=== PATIENT | female | born 1945 | race Hispanic/Latino ===

== ENCOUNTER 2017-11-20 12:44 | Inpatient (IN) | payer MEDICARE, OTHER ==
--- NOTE | 2017-11-20 13:13 | ED PDOC ---
Arrival/HPI - General Time Seen by Provider: 11/20/17 12:51 Historian: Patient - History of Present Illness Narrative History of Present Illness (Text): 11/20/17 12:55 Pat Mc is a 72 year old female who presents to the emergency department complaining of generalized weakness, fatigue, inability to walk, and increased confusion for a few days. Patient history obtained from and Dr. Correa. Patient was sent in to be admitted for custodial placement. No other complaints offered at this time. Patient has never smoked and is not a drinker. Time/Duration: < week Symptom Onset: Gradual Symptom Course: Unchanged Context: Home Past Medical History - Provider Review Nursing Documentation Reviewed: Yes - Infectious Disease Hx of Infectious Diseases: None - Tetanus Immunization Tetanus Immunization: Up to Date - Past Medical History Past Medical History: No Previous - Cardiac Hx Cardiac Arrhythmia: Yes - Musculoskeletal/Rheumatological Hx Falls: Yes Other/Comment: right knee miniscus surgery - Psychiatric Hx Psychophysiologic Disorder: No Hx Anxiety: No Hx Bipolar Disorder: No Hx Depression: No Hx Emotional Abuse: No Hx Hallucinations: No Hx Panic Disorder: No Hx Post Traumatic Stress Disorder: No Hx Psychosis: No Hx Physical Abuse: No Hx Schizophrenia: No Hx Sexual Abuse: No Hx Substance Use: No - Surgical History Hx Orthopedic Surgery: Yes (right knee miniscus) - Anesthesia Hx Anesthesia: Yes Hx Anesthesia Reactions: No Hx Malignant Hyperthermia: No - Suicidal Assessment Feels Threatened In Home Enviroment: No Family/Social History - Physician Review Nursing Documentation Reviewed: Yes Family/Social History: No Known Family HX Smoking Status: Never Smoked Hx Alcohol Use: No Hx Substance Use: No Hx Substance Use Treatment: No Allergies/Home Meds Allergies/Adverse Reactions: Allergies No Known Allergies Allergy (Verified 02/26/15 19:54) Home Medications: Home Meds Medication Instructions Recorded Confirmed Aspirin [Aspirin EC] 81 mg PO DAILY 02/28/15 06/01/15 Metoprolol Tartrate [Lopressor] 50 mg PO Q12 02/28/15 06/02/15 Review of Systems - Physician Review All systems were reviewed & negative as marked: Yes - Review of Systems Constitutional: Fatigue, Other (generalized weakness; inability to walk) Eyes: absent: Vision Changes ENT: absent: Hearing Changes Respiratory: absent: SOB, Cough Cardiovascular: absent: Chest Pain Gastrointestinal: absent: Abdominal Pain Genitourinary Female: absent: Dysuria, Frequency Musculoskeletal: absent: Arthralgias Skin: absent: Rash Neurological: absent: Headache Endocrine: absent: Diaphoresis Hemo/Lymphatic: absent: Adenopathy Psychiatric: Other (increased confusion) Physical Exam Vital Signs Reviewed: Yes Vital Signs Temp Pulse Resp BP Pulse Ox 11/20/17 14:44 79 18 133/74 98 11/20/17 13:10 98.4 F 92 H 18 129/64 100 Mental Status: Positive for: other (oriented to person only) - Systems Exam Head: Present: Atraumatic, Normocephalic Pupils: Present: PERRL Extroacular Muscles: Present: EOMI Conjunctiva: Present: Normal Mouth: Present: Moist Mucous Membranes Neck: Present: Normal Range of Motion Respiratory/Chest: Present: Clear to Auscultation, Good Air Exchange. No: Respiratory Distress, Accessory Muscle Use Cardiovascular: Present: Regular Rate and Rhythm, Normal S1, S2. No: Murmurs Abdomen: Present: Normal Bowel Sounds. No: Tenderness, Distention, Peritoneal Signs Back: Present: Normal Inspection Upper Extremity: Present: Normal Inspection. No: Cyanosis, Edema Lower Extremity: Present: Normal Inspection. No: Edema Skin: Present: Warm, Dry, Normal Color. No: Rashes Psychiatric: No: Oriented x 3 (oriented to person only) Medical Decision Making ED Course and Treatment: 11/20/17 13:16 Impression: 72 year old female complaining of generalized weakness, fatigue, inability to walk, and increased confusion for a few days. Plan: -- EKG -- Chest X-ray -- Urinalysis -- Labs -- Reassess and disposition Progress Notes: 11/20/17 14:29 Chest X-ray: Creator : Chapito Anton MD FINDINGS: LUNGS:No active pulmonary disease. PLEURA:No significant pleural effusion identified, no pneumothorax apparent. CARDIOVASCULAR:Normal. OSSEOUS STRUCTURES:No significant abnormalities. VISUALIZED UPPER ABDOMEN:Normal. OTHER FINDINGS:None. IMPRESSION: No active disease. 11/20/17 14:55 Waiting for urine sample. Patient does have a leukocytosis. Straight catheterization has been ordered on arrival, but has not yet been done. 11/20/17 15:58 EKG shows sinus arrhythmia rate approximately 90 with poor R waves and no acute ST or T-wave changes 11/20/17 16:[address]E Correa who will admit. No antibiotics at this point. Blood and urine cultures have been obtained. - Lab Interpretations Lab Results: 11/20/17 13:15 11/20/17 13:15 Lab Results 11/20/17 15:00: Urine Color Yellow, Urine Appearance Clear, Urine pH 7.5, Ur Specific Alexander 1.015, Urine Protein 30 H, Urine Glucose (UA) Negative, Urine Ketones Negative, Urine Blood Negative, Urine Nitrate Negative, Urine Bilirubin Negative, Urine Urobilinogen 0.2, Ur Leukocyte Esterase Negative, Urine RBC 0 - 2, Urine WBC 1 - 3, Ur Epithelial Cells 0 - 2, Urine Bacteria Few 11/20/17 13:15: Sodium 131 L, Potassium 4.0, Chloride 94 L, Carbon Dioxide 27, Anion Gap 14, BUN 15, Creatinine 0.8, Est GFR ( Amer) > 60, Est GFR (Non- Af Amer) > 60, Random Glucose 127 H, Calcium 9.0, Total Bilirubin 0.5, AST 64 H , ALT 41, Alkaline Phosphatase 171 H, Lactate Dehydrogenase 1040 H, Total Creatine Kinase < 20 L, Troponin I < 0.01, Total Protein 6.9, Albumin 3.1, Globulin 3.7, Albumin/Globulin Ratio 0.8 L 11/20/17 13:15: WBC 19.4 H D, RBC 3.68, Hgb 11.1 L, Hct 34.2 L, MCV 92.9, MCH 30.2, MCHC 32.5, RDW 13.3, Plt Count 412, MPV 9.1, Gran % 92.3 H, Lymph % (Auto ) 4.4 L, [place] % (Auto) 3.2, Eos % (Auto) 0.1 L, Baso % (Auto) 0.0, Gran # 17.87 H, Lymph # (Auto) 0.9 L, [place] # (Auto) 0.6, Eos # (Auto) 0.0, Baso # (Auto) 0.00 , Neutrophils % (Manual) 94 H, Band Neutrophils % 1, Lymphocytes % (Manual) 3 L , Monocytes % (Manual) 2, Platelet Evaluation Normal I have reviewed the lab results: Yes - RAD Interpretation Radiology Orders: 11/20/17 13:16 CHEST PORTABLE [RAD] Stat - Scribe Statement The provider has reviewed the documentation as recorded by the Giseleibe Mariela Thakur Provider Scribe Attestation: All medical record entries made by the Scribe were at my direction and personally dictated by me. I have reviewed the chart and agree that the record accurately reflects my personal performance of the history, physical exam, medical decision making, and the department course for this patient. I have also personally directed, reviewed, and agree with the discharge instructions and disposition. Disposition/Present on Arrival - Present on Arrival Any Indicators Present on Arrival: No History of DVT/PE: No History of Uncontrolled Diabetes: No Urinary Catheter: No History of Decub. Ulcer: No History Surgical Site Infection Following: None - Disposition Have Diagnosis and Disposition been Completed?: Yes Diagnosis: Leukocytosis, Dementia, Weakness Disposition: HOSPITALIZED Disposition Time: 16:02 Patient Plan: Admission Condition: FAIR Discharge Instructions (ExitCare): Weakness (ED) Referrals: Bairon Correa MD [Primary Care Provider] - Follow up with primary
[2017-11-20 13:25] LABS: EOS % 0.1 % (1.5-5.0); GRAN # 17.87 (1.4-6.5); GRAN % 92.3 % (50.0-68.0); HEMOGLOBIN 11.1 g/dL (12.0-16.0); LYMPH # 0.9 (1.2-3.4); LYMPH % 4.4 % (22.0-35.0); MEAN CELL VOLUME 92.9 fl (80.0-105.0); MEAN CORPUSCULAR HEMOGLOBIN 30.2 pg (25.0-35.0); MEAN CORPUSCULAR HGB CONC 32.5 g/dl (31.0-37.0); MEAN PLATELET VOLUME 9.1 fl (7.0-11.0); MONO # 0.6 (0.1-0.6); MONO % 3.2 % (1.0-6.0); PLATELET COUNT 412 10^3/uL (120.0-450.0); RBC 3.68 10^6/uL (3.5-6.1); RED CELL DISTRIBUTION WIDTH 13.3 % (11.5-14.5); WHITE BLOOD COUNT 19.4 10^3/ul (4.5-11.0)
[2017-11-20 13:46] LABS: ALB/GLOB RATIO 0.8 (1.1-1.8); ALBUMIN 3.1 g/dL (3.0-4.8); ALT/SGPT 41 U/L (7-56); AST/SGOT 64 U/L (14-36); BLOOD UREA NITROGEN 15 mg/dL (7-21); GFR AFRICAN-AMERICAN > 60; GFR NON-AFRICAN AMERICAN > 60
--- NOTE | 2017-11-20 13:55 | RAD ---
HISTORY: ams COMPARISON: 06/01/2015 FINDINGS: LUNGS: No active pulmonary disease. PLEURA: No significant pleural effusion identified, no pneumothorax apparent. CARDIOVASCULAR: Normal. OSSEOUS STRUCTURES: No significant abnormalities. VISUALIZED UPPER ABDOMEN: Normal. OTHER FINDINGS: None. IMPRESSION: No active disease.
[2017-11-20 13:56] LABS: TROPONIN I < 0.01 ng/mL
[2017-11-20 13:57] LABS: BAND 1 % (0-2); LYMPHOCYTE 3 % (22.0-35.0); MONOCYTE 2 % (1.0-6.0); NEUTROPHIL 94 % (50.0-70.0); PLATELET ESTIMATE NORMAL (NORMAL)
[2017-11-20 15:26] LABS: PH,URINE 7.5 (4.7-8.0); URINE BILIRUBIN NEGATIVE (NEGATIVE); URINE BLOOD NEGATIVE (NEGATIVE); URINE GLUCOSE (UA) NEGATIVE (NEGATIVE); URINE LEUKOCYTE ESTERASE NEGATIVE Leu/uL (NEGATIVE); URINE NITRATE NEGATIVE (NEGATIVE); URINE PROTEIN 30 mg/dL (<30 mg/dL); URINE UROBILINOGEN 0.2 E.U./dL (<1 E.U./dL)
[2017-11-20 15:29] LABS: URINE APPEARANCE CLEAR (CLEAR); URINE COLOR YELLOW (YELLOW)
[2017-11-20 15:39] LABS: URINE BACTERIA FEW (NEG); URINE EPITHELIAL CELLS 0 - 2 /hpf (0-5); URINE RBC 0 - 2 /hpf (0-2)
--- NOTE | 2017-11-20 17:52 | CARD ---
APPROVED REPORT EKG Measurement Heart [id number] <Conclusion> Sinus rhythm with short UT with premature atrial complexes with aberrant conduction Otherwise normal ECG
[2017-11-21 00:21] VITALS: BMI 18.4
[2017-11-21 06:28] LABS: HEMOGLOBIN 11.9 g/dL (12.0-16.0); MEAN CELL VOLUME 91.4 fl (80.0-105.0); MEAN CORPUSCULAR HEMOGLOBIN 30.1 pg (25.0-35.0); MEAN CORPUSCULAR HGB CONC 32.9 g/dl (31.0-37.0); MEAN PLATELET VOLUME 9.4 fl (7.0-11.0); RBC 3.96 10^6/uL (3.5-6.1); RED CELL DISTRIBUTION WIDTH 13.7 % (11.5-14.5); WHITE BLOOD COUNT 24.4 10^3/ul (4.5-11.0)
[2017-11-21 06:50] LABS: ALB/GLOB RATIO 0.8 (1.1-1.8); ALT/SGPT 42 U/L (7-56); AST/SGOT 73 U/L (14-36); BLOOD UREA NITROGEN 12 mg/dL (7-21); CALCIUM 9.2 mg/dL (8.4-10.5); GFR AFRICAN-AMERICAN > 60; GFR NON-AFRICAN AMERICAN > 60
--- NOTE | 2017-11-21 11:55 | CP.PCM.CON ---
History of Present Illness - History of Present Illness History of Present Illness: 72 year old female with PMH of right meniscus surgery, frequent falls came in to [facility] because the patient has been having increasing weakness, fatigue and difficulty ambulating for the past week. It had been going on longer than this, probably for at least several months now, but is getting worse. The patient has also been having worsening forgetfulness for over a year now and is currently being treated for dementia with medications. She denies headache, no jaw pain when eating, no blurring of vision, no sore throat, no rhinorrhea, no cough or colds, no chest pain, no SOB at rest, no abdominal pain, no diarrhea, no dysuria , no muscle aches. The patient is oriented to person but not to time and place. In the ED, WBC count is noted to be elevated and Infectious Diseases consult is requested to further evaluate and manage. Review of Systems - Review of Systems All systems: reviewed and no additional remarkable complaints except (as per HPI ) Past Patient History - Infectious Disease Hx of Infectious Diseases: None - Tetanus Immunizations Tetanus Immunization: Up to Date - Past Social History Smoking Status: Never Smoked - CARDIAC Hx Cardiac Disorders: Yes Hx Hypertension: Yes Other/Comment: HISTORY OBTAINED FROM SPOUSE AND SON - PULMONARY Hx Respiratory Disorders: No - NEUROLOGICAL Hx Neurological Disorder: Yes Hx Dementia: Yes - HEENT Hx HEENT Problems: No - RENAL Hx Chronic Kidney Disease: No - ENDOCRINE/METABOLIC Hx Endocrine Disorders: No - HEMATOLOGICAL/ONCOLOGICAL Hx Blood Disorders: No - INTEGUMENTARY Hx Dermatological Problems: No - MUSCULOSKELETAL/RHEUMATOLOGICAL Hx Falls: Yes - GASTROINTESTINAL Hx Gastrointestinal Disorders: No - PSYCHIATRIC Hx Psychophysiologic Disorder: No - SURGICAL HISTORY Hx Surgeries: Yes Hx Orthopedic Surgery: Yes (right knee miniscus) - ANESTHESIA Hx Anesthesia: Yes Hx Anesthesia Reactions: No Hx Malignant Hyperthermia: No Meds Allergies/Adverse Reactions: Allergies Allergy/AdvReac Type Severity Reaction Status Date / Time No Known Allergies Allergy Verified 11/20/17 19:00 - Medications Medications: Current Medications Aspirin (Aspirin Chewable) 81 mg PO DAILY [facility] Donepezil HCl (Aricept) 10 mg PO DAILY [facility] Memantine (Namenda) 10 mg PO BID [facility] Metoprolol Tartrate (Lopressor) 50 mg PO Q12 [facility] Last Admin: 11/20/17 23:17 Dose: 50 mg Physical Exam - Constitutional Appears: Non-toxic, Chronically Ill - Head Exam Head Exam: NORMAL INSPECTION Additional comments: no temporal tenderness - ENT Exam ENT Exam: Mucous Membranes Moist - Neck Exam Neck exam: Negative for: Lymphadenopathy, Meningismus - Respiratory Exam Respiratory Exam: Decreased Breath Sounds - Cardiovascular Exam Cardiovascular Exam: +S1, +S2 - GI/Abdominal Exam GI & Abdominal Exam: Soft. absent: Tenderness Results - Vital Signs Recent Vital Signs: Last Vital Signs Temp 97.7 F 11/21/17 08:04 Pulse 89 11/21/17 08:04 Resp 23 11/21/17 08:04 BP 140/70 11/21/17 08:04 Pulse Ox 96 11/21/17 08:04 - Labs Result Diagrams: 11/21/17 05:30 11/21/17 05:30 Labs: Laboratory Results - last 24 hr 11/21/17 11/21/17 05:30 05:30 WBC 24.4 H D RBC 3.96 Hgb 11.9 L Hct 36.2 MCV 91.4 MCH 30.1 MCHC 32.9 RDW 13.7 Plt Count 459 H MPV 9.4 Sodium 132 Potassium 4.0 Chloride 95 L Carbon Dioxide 29 Anion Gap 12 BUN 12 Creatinine 0.6 L Est GFR ( Amer) > 60 Est GFR (Non-Af Amer) > 60 Random Glucose 72 Calcium 9.2 Total Bilirubin 0.5 AST 73 H ALT 42 Alkaline Phosphatase 168 H Total Protein 6.7 Albumin 3.0 Globulin 3.7 Albumin/Globulin Ratio 0.8 L Assessment & Plan - Assessment and Plan (Free Text) Plan: Assessment Leukocytosis, etiology to be determined, R/O infection S/P right meniscus surgery frequent falls Plan Will check blood cx, urine cx, PCT; CXR does not show pneumonia will get ANIBAL, RF, RPR will monitor off antibiotics
--- NOTE | 2017-11-21 13:49 | CP.PCM.CON ---
<PhucGiselle - Last Filed: 11/21/17 17:06> History of Present Illness - History of Present Illness History of Present Illness: PGY-[address] Acuña Consult: Dementia, leukocytosis with elevated ESR Ms Pat Rob, 72 F, with PMHx of dementia (Dx 2 years ago), c/o increasing generalized weakness, fatique, and difficulty ambulation for the past week. Pt' s states that since they moved to the new place at [place] around jun 2017, these symptoms slowly and progressively get worse. Per , pt has fecal incontinent accidents 1 week ago, occasional forget how to use a walker requiring frequent instructions, and becomes more confused. 2 nights ago, per , pt is not able to ambulate despite repeat instructions. The feel that he cannot safely take care of the pt at home with these new worsening of symptoms, which prompted pt to come to the hospital. At baseline, Patient is oriented to person but not to time and place. Dependent in ADLs except self feed. 1 assist with walker. incontinence of B&B. ROS - Denies personality changes or hallucination. Denies sudden changes. Denies recent change in meds. No neurology f/u x 2 years. Denies CATALAN, jaw pain when eating, blurry vision, CP, SOB, nausea, abdominal pain , dysuria. Upon ED arrival, BP 176/84. HR 90s. Leukocytosis at 19.4 with granulocytosis, ESR 89. Na 131, Cl 94, AST 64, Alk phos 171, LDH 1040 U/A negative for infection CXR: No active disease EKG: sinus arrthythia @ 90 with poor R waves. PMD: Dr Correa PMH Sinus arrythmia with aberrant conduction Hx of chronic leukocytosis with positive ANIBAL Hx psoriasis Dementia (Dx 2 years ago) Hx frequent falls, Osteoarthritis in both knees PSH Thyroidectomy 1960 R meniscus Arthroscopic surgery 2007 FH Father, age 70, brain aneurysm Mother, age 60, multiple sclerosis SH Former smoker 1pack a day x 40 days, Quit smokeing 1994 Denies alcohol, drug All Penicillin - rash, severe Med ASA 81, metoprolol 50 BID Aricept 10 Daily and Namenda 10 BID Oxybutinin 5 BID Review of Systems - Review of Systems All systems: reviewed and no additional remarkable complaints except Review of Systems: as of HPI Past Patient History - Infectious Disease Hx of Infectious Diseases: None - Tetanus Immunizations Tetanus Immunization: Up to Date - Past Social History Smoking Status: Never Smoked - CARDIAC Hx Cardiac Disorders: Yes Hx Hypertension: Yes Other/Comment: HISTORY OBTAINED FROM SPOUSE AND SON - PULMONARY Hx Respiratory Disorders: No - NEUROLOGICAL Hx Neurological Disorder: Yes Hx Dementia: Yes - HEENT Hx HEENT Problems: No - RENAL Hx Chronic Kidney Disease: No - ENDOCRINE/METABOLIC Hx Endocrine Disorders: No - HEMATOLOGICAL/ONCOLOGICAL Hx Blood Disorders: No - INTEGUMENTARY Hx Dermatological Problems: No - MUSCULOSKELETAL/RHEUMATOLOGICAL Hx Falls: Yes - GASTROINTESTINAL Hx Gastrointestinal Disorders: No - PSYCHIATRIC Hx Psychophysiologic Disorder: No - SURGICAL HISTORY Hx Surgeries: Yes Hx Orthopedic Surgery: Yes (right knee miniscus) - ANESTHESIA Hx Anesthesia: Yes Hx Anesthesia Reactions: No Hx Malignant Hyperthermia: No Meds Allergies/Adverse Reactions: Allergies Allergy/AdvReac Type Severity Reaction Status Date / Time No Known Allergies Allergy Verified 11/20/17 19:00 - Medications Medications: Current Medications Acetaminophen (Tylenol 325mg Tab) 650 mg PO Q6H PRN PRN Reason: Fever >100.4 F Aspirin (Ecotrin) 81 mg PO DAILY [facility] Donepezil HCl (Aricept) 10 mg PO DAILY [facility] Last Admin: 11/21/17 11:18 Dose: 10 mg Memantine (Namenda) 10 mg PO BID [facility] Last Admin: 11/21/17 11:18 Dose: 10 mg Metoprolol Tartrate (Lopressor) 50 mg PO BRKDIN [facility] Physical Exam - Head Exam Head Exam: ATRAUMATIC, NORMAL INSPECTION, NORMOCEPHALIC - Eye Exam Eye Exam: EOMI, Normal appearance, PERRL. absent: Scleral icterus Pupil Exam: NORMAL ACCOMODATION - ENT Exam ENT Exam: Mucous Membranes Moist - Neck Exam Additional comments: supple - Respiratory Exam Respiratory Exam: Clear to Auscultation Bilateral, NORMAL BREATHING PATTERN. absent: Rales, Rhonchi, Wheezes - Cardiovascular Exam Cardiovascular Exam: REGULAR RHYTHM, +S1, +S2 - GI/Abdominal Exam GI & Abdominal Exam: Normal Bowel Sounds, Soft. absent: Tenderness - Extremities Exam Extremities exam: Negative for: calf tenderness Additional comments: No saddle anesthesia - Neurological Exam Neurological exam: Alert, CN II-XII Intact Additional comments: AAO x 1 to person Speech: no aphasia recall: 0/3 motor: move all extremities 4+/5 sensory: intact though: follow one-step instructions only. Left handed. - Psychiatric Exam Psychiatric exam: Normal Affect, Normal Mood - Skin Skin Exam: Dry, Warm Results - Vital Signs Recent Vital Signs: Last Vital Signs Temp 97.7 F 11/21/17 08:04 Pulse 90 11/21/17 11:18 Resp 23 11/21/17 08:04 BP 140/82 11/21/17 11:18 Pulse Ox 96 11/21/17 08:04 - Labs Result Diagrams: 11/21/17 05:30 11/21/17 05:30 Labs: Laboratory Results - last 24 hr 11/21/17 11/21/17 11/21/17 05:30 05:30 06:30 WBC 24.4 H D RBC 3.96 Hgb 11.9 L Hct 36.2 MCV 91.4 MCH 30.1 MCHC 32.9 RDW 13.7 Plt Count 459 H MPV 9.4 ESR 89 H Sodium 132 Potassium 4.0 Chloride 95 L Carbon Dioxide 29 Anion Gap 12 BUN 12 Creatinine 0.6 L Est GFR ( Amer) > 60 Est GFR (Non-Af Amer) > 60 Random Glucose 72 Calcium 9.2 Total Bilirubin 0.5 AST 73 H ALT 42 Alkaline Phosphatase 168 H Total Protein 6.7 Albumin 3.0 Globulin 3.7 Albumin/Globulin Ratio 0.8 L Assessment & Plan - Assessment and Plan (Free Text) Plan: Ms Pat Rob, 72 F, with PMHx of dementia (Dx 2 years ago), Hx (+) ANIBAL, c/ o increasing generalized weakness, fatique, and difficulty ambulation. Denies personality changes or hallucination. Her leukocytosis is at 19.4 with granulocytosis, ESR 89. Alzheimer Dementia r/o secondary cause - __Pening_ B12, TSH, RPR - __Pening_ MRI brain - Currently observe off antibiotics. Pending culture result - repeat ANIBAL, immunofixation, RF, Lupus panel - continue donepezil 10 daily and Namenda 10 BID - Physical therapy, occupational therapy - Recommended subacute rehab and long-term placement - Pt's prefer [place] s/r/d/w Dr. Acuña <Pepe Acuña - Last Filed: 11/22/17 09:22> Meds - Medications Medications: Current Medications Acetaminophen (Tylenol 325mg Tab) 650 mg PO Q6H PRN PRN Reason: Fever >100.4 F Aspirin (Ecotrin) 81 mg PO DAILY [facility] Last Admin: 11/21/17 17:43 Dose: 81 mg Donepezil HCl (Aricept) 10 mg PO DAILY [facility] Last Admin: 11/21/17 11:18 Dose: 10 mg Memantine (Namenda) 10 mg PO BID [facility] Last Admin: 11/21/17 17:43 Dose: 10 mg Metoprolol Tartrate (Lopressor) 50 mg PO BRKDIN [facility] Last Admin: 11/22/17 08:14 Dose: 50 mg Results - Vital Signs Recent Vital Signs: Last Vital Signs Temp 97.9 F 11/22/17 08:34 Pulse 97 H 11/22/17 08:34 Resp 20 11/22/17 08:34 BP 150/80 11/22/17 08:34 Pulse Ox 98 11/22/17 08:34 - Labs Result Diagrams: 11/22/17 06:10 11/22/17 06:10 Labs: Laboratory Results - last 24 hr 11/21/17 11/21/17 11/21/17 06:30 09:25 11:30 WBC RBC Hgb Hct MCV MCH MCHC RDW Plt Count MPV Gran % Lymph % (Auto) [place] % (Auto) Eos % (Auto) Baso % (Auto) Gran # Lymph # (Auto) [place] # (Auto) Eos # (Auto) Baso # (Auto) ESR 89 H Retic Count Sodium Potassium Chloride Carbon Dioxide Anion Gap BUN Creatinine Est GFR ( Amer) Est GFR (Non-Af Amer) Random Glucose Calcium Iron TIBC % Saturation C-React Prot High Sens > 15.00 H Procalcitonin Free T4 TSH 3rd Generation Rheumatoid Factor RPR Nonreactive WB Flow Cytometry 11/21/17 11/21/17 11/22/17 11:50 11:50 06:10 WBC 23.2 H RBC 3.88 Hgb 11.7 L Hct 35.4 L MCV 91.2 MCH 30.2 MCHC 33.1 RDW 13.5 Plt Count 418 MPV 9.4 Gran % 82.8 H Lymph % (Auto) 8.5 L [place] % (Auto) 7.7 H Eos % (Auto) 1.0 L Baso % (Auto) 0.0 Gran # 19.16 H Lymph # (Auto) 2.0 [place] # (Auto) 1.8 H Eos # (Auto) 0.2 Baso # (Auto) 0.01 ESR 88 H Retic Count 1.79 H Sodium Potassium Chloride Carbon Dioxide Anion Gap BUN Creatinine Est GFR ( Amer) Est GFR (Non-Af Amer) Random Glucose Calcium Iron TIBC % Saturation C-React Prot High Sens Procalcitonin 0.74 H Free T4 TSH 3rd Generation Rheumatoid Factor <14 RPR WB Flow Cytometry 11/22/17 11/22/17 11/22/17 06:10 06:10 06:10 WBC RBC Hgb Hct MCV MCH MCHC RDW Plt Count MPV Gran % Lymph % (Auto) [place] % (Auto) Eos % (Auto) Baso % (Auto) Gran # Lymph # (Auto) [place] # (Auto) Eos # (Auto) Baso # (Auto) ESR Retic Count Sodium 129 L Potassium 3.7 Chloride 93 L Carbon Dioxide 28 Anion Gap 12 BUN 9 Creatinine 0.5 L Est GFR ( Amer) > 60 Est GFR (Non-Af Amer) > 60 Random Glucose 79 Calcium 8.8 Iron 33 L TIBC 209 L % Saturation 16 L C-React Prot High Sens Procalcitonin Free T4 1.30 TSH 3rd Generation 0.97 Rheumatoid Factor RPR WB Flow Cytometry 11/22/17 08:00 WBC RBC Hgb Hct MCV MCH MCHC RDW Plt Count MPV Gran % Lymph % (Auto) [place] % (Auto) Eos % (Auto) Baso % (Auto) Gran # Lymph # (Auto) [place] # (Auto) Eos # (Auto) Baso # (Auto) ESR Retic Count Sodium Potassium Chloride Carbon Dioxide Anion Gap BUN Creatinine Est GFR ( Amer) Est GFR (Non-Af Amer) Random Glucose Calcium Iron TIBC % Saturation C-React Prot High Sens Procalcitonin Free T4 TSH 3rd Generation Rheumatoid Factor RPR WB Flow Cytometry Reference test Attending/Attestation - Attestation I have personally seen and examined this patient.: Yes I have fully participated in the care of the patient.: Yes I have reviewed all pertinent clinical information: Yes
[2017-11-22 06:35] LABS: BASO # 0.01 K/mm3 (0.0-2.0); EOS # 0.2 (0.0-0.7); GRAN # 19.16 (1.4-6.5); GRAN % 82.8 % (50.0-68.0); HEMOGLOBIN 11.7 g/dL (12.0-16.0); LYMPH % 8.5 % (22.0-35.0); MEAN CELL VOLUME 91.2 fl (80.0-105.0); MEAN CORPUSCULAR HEMOGLOBIN 30.2 pg (25.0-35.0); MEAN CORPUSCULAR HGB CONC 33.1 g/dl (31.0-37.0); MEAN PLATELET VOLUME 9.4 fl (7.0-11.0); MONO # 1.8 (0.1-0.6); MONO % 7.7 % (1.0-6.0); RBC 3.88 10^6/uL (3.5-6.1); RED CELL DISTRIBUTION WIDTH 13.5 % (11.5-14.5); WHITE BLOOD COUNT 23.2 10^3/ul (4.5-11.0)
[2017-11-22 06:51] LABS: IRON 33 ug/dL (45-180)
[2017-11-22 07:03] LABS: FREE T4 1.3 ng/dL (0.78-2.19)
[2017-11-22 07:04] LABS: % IRON SATURATION 16 % (20-55); TOTAL IRON BINDING CAPACITY 209 ug/dL (265-497)
[2017-11-22 07:49] LABS: BLOOD UREA NITROGEN 9 mg/dL (7-21); CALCIUM 8.8 mg/dL (8.4-10.5); GFR AFRICAN-AMERICAN > 60; GFR NON-AFRICAN AMERICAN > 60
--- NOTE | 2017-11-22 09:22 | PN ---
HEMATOLOGY EVALUATION The patient has multiple medical problems, but she has elevated white count of 23,000. Peripheral smear shows mostly polys. No increased lymphs. This is most likely reactive leukocytosis, but as we wait for her treatment of antibiotics, I sent her for flow cytometry and a BCR mutation to rule out chronic myelogenous leukemia that might be underlying this. Further evaluation after I review some of the labs. Guille Ronquillo MD
--- NOTE | 2017-11-22 11:18 | CP.PCM.PN ---
<Giselle Friend - Last Filed: 11/22/17 12:43> Subjective - Date & Time of Evaluation Date of Evaluation: 11/22/17 Time of Evaluation: 09:00 - Subjective Subjective: Neurology PGY-[address] Acuña Pt states that she is at home, denies any acute distress Objective - Vital Signs/Intake and Output Vital Signs (last 24 hours): Temp Pulse Resp BP Pulse Ox 97.9 F 97 H 20 150/80 98 11/22/17 08:34 11/22/17 08:34 11/22/17 08:34 11/22/17 08:34 11/22/17 08:34 Intake and Output: 11/22/17 11/22/17 06:59 18:59 Intake Total 480 Balance 480 - Medications Medications: Current Medications Acetaminophen (Tylenol 325mg Tab) 650 mg PO Q6H PRN PRN Reason: Fever >100.4 F Aspirin (Ecotrin) 81 mg PO DAILY [facility] Last Admin: 11/22/17 10:08 Dose: 81 mg Donepezil HCl (Aricept) 10 mg PO DAILY [facility] Last Admin: 11/22/17 10:08 Dose: 10 mg Memantine (Namenda) 10 mg PO BID [facility] Last Admin: 11/22/17 10:08 Dose: 10 mg Metoprolol Tartrate (Lopressor) 50 mg PO BRKDIN [facility] Last Admin: 11/22/17 08:14 Dose: 50 mg - Labs Labs: 11/22/17 06:10 11/22/17 06:10 - Constitutional Appears: No Acute Distress - Head Exam Head Exam: ATRAUMATIC, NORMAL INSPECTION, NORMOCEPHALIC - Eye Exam Eye Exam: EOMI, Normal appearance, PERRL. absent: Scleral icterus Pupil Exam: NORMAL ACCOMODATION - ENT Exam ENT Exam: Mucous Membranes Moist - Neck Exam Additional comments: supple - Respiratory Exam Respiratory Exam: Clear to Ausculation Bilateral, NORMAL BREATHING PATTERN - Cardiovascular Exam Cardiovascular Exam: REGULAR RHYTHM, +S1, +S2. absent: Murmur - Extremities Exam Extremities Exam: absent: Calf Tenderness - Neurological Exam Neurological Exam: Alert, Awake Additional comments: AAO x 1 to person Speech: no aphasia recall: 0/3 motor: move all extremities 4+/5 sensory: intact though: follow one-step instructions only. Left handed. - Psychiatric Exam Psychiatric exam: Normal Affect, Normal Mood - Skin Skin Exam: Dry, Warm Assessment and Plan - Assessment and Plan (Free Text) Plan: Ms Pat Rob, 72 F, with PMHx of dementia (Dx 2 years ago), Hx (+) ANIBAL, c/ o increasing generalized weakness, fatique, and difficulty ambulation. Denies personality changes or hallucination. Her leukocytosis is at 19.4 with granulocytosis, ESR 89. Hyponatremia today. TSH normal. 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 Pending culture result - repeat ANIBAL, immunofixation, RF, Lupus panel - continue donepezil 10 daily and Namenda 10 BID - Physical therapy, occupational therapy - Recommended subacute rehab and long-term placement - Pt's prefer [place] Leukocytosis in 20s mostly PMNs, no increased lymph, likely reactive leukocytosis Fe Deficiency anemia - Heme/Onc team on board - flow cytometry, BCR mutation to rule out chrinic myelogenous leukemia s/r/d/w Dr. Acuña <Pepe Acuña - Last Filed: 11/22/17 13:41> Objective - Vital Signs/Intake and Output Vital Signs (last 24 hours): Temp Pulse Resp BP Pulse Ox 97.9 F 97 H 20 150/80 98 11/22/17 08:34 11/22/17 08:34 11/22/17 08:34 11/22/17 08:34 11/22/17 08:34 Intake and Output: 11/22/17 11/22/17 06:59 18:59 Intake Total 480 Balance 480 - Medications Medications: Current Medications Acetaminophen (Tylenol 325mg Tab) 650 mg PO Q6H PRN PRN Reason: Fever >100.4 F Aspirin (Ecotrin) 81 mg PO DAILY [facility] Last Admin: 11/22/17 10:08 Dose: 81 mg Donepezil HCl (Aricept) 10 mg PO DAILY [facility] Last Admin: 11/22/17 10:08 Dose: 10 mg Memantine (Namenda) 10 mg PO BID [facility] Last Admin: 11/22/17 10:08 Dose: 10 mg Metoprolol Tartrate (Lopressor) 50 mg PO BRKDIN [facility] Last Admin: 11/22/17 08:14 Dose: 50 mg - Labs Labs: 11/22/17 06:10 11/22/17 06:10 Attending/Attestation - Attestation I have personally seen and examined this patient.: Yes I have fully participated in the care of the patient.: Yes I have reviewed all pertinent clinical information, including history, physical exam and plan: Yes
--- NOTE | 2017-11-22 11:25 | CP.PCM.PN ---
Subjective - Date & Time of Evaluation Date of Evaluation: 11/22/17 Time of Evaluation: 10:15 - Subjective Subjective: Comfortable in bed, no fevers, no sore throat, no headache, diarrhea, no abdominal pain. Objective - Vital Signs/Intake and Output Vital Signs (last 24 hours): Temp Pulse Resp BP Pulse Ox 97.9 F 97 H 20 150/80 98 11/22/17 08:34 11/22/17 08:34 11/22/17 08:34 11/22/17 08:34 11/22/17 08:34 Intake and Output: 11/22/17 11/22/17 06:59 18:59 Intake Total 480 Balance 480 - Medications Medications: Current Medications Acetaminophen (Tylenol 325mg Tab) 650 mg PO Q6H PRN PRN Reason: Fever >100.4 F Aspirin (Ecotrin) 81 mg PO DAILY [facility] Last Admin: 11/21/17 17:43 Dose: 81 mg Donepezil HCl (Aricept) 10 mg PO DAILY [facility] Last Admin: 11/21/17 11:18 Dose: 10 mg Memantine (Namenda) 10 mg PO BID [facility] Last Admin: 11/21/17 17:43 Dose: 10 mg Metoprolol Tartrate (Lopressor) 50 mg PO BRKDIN [facility] Last Admin: 11/22/17 08:14 Dose: 50 mg - Labs Labs: 11/22/17 06:10 11/22/17 06:10 - Constitutional Appears: Non-toxic, Chronically Ill - Head Exam Head Exam: NORMAL INSPECTION Additional comments: no temporal tenderness - ENT Exam ENT Exam: Mucous Membranes Moist - Neck Exam Neck Exam: absent: Meningismus - Respiratory Exam Respiratory Exam: Decreased Breath Sounds - Cardiovascular Exam Cardiovascular Exam: +S1, +S2 - GI/Abdominal Exam GI & Abdominal Exam: Soft. absent: Tenderness Assessment and Plan - Assessment and Plan (Free Text) Plan: Assessment Leukocytosis, etiology to be determined, R/O infection R/O vasculitis probable Alzheimer's dementia S/P right meniscus surgery frequent falls Plan follow up blood cx, urine cx; PCT is mildly elevated but no source of infection identified so far; CXR does not show pneumonia follow up ANIBAL; RF, RPR are negative will continue to monitor off antibiotics follow up MRI brain results patient may need CT scan of the abdomen and pelvis if cultures are negative to investigate the leukocytosis - follow up Flow cytometry results as well
[2017-11-22] MEDS ORDERED: Gadodiamide 287 MG/ML VIAL (15ML) IV ONE (13:55)
--- NOTE | 2017-11-22 14:31 | MRI ---
PROCEDURE: MRI BRAIN WITH AND WITHOUT CONTRAST HISTORY: Dementia, r/o stroke COMPARISON: 07/07/2016 TECHNIQUE: Multiplanar, multisequence MR images of the brain were obtained with and without intravenous contrast enhancement. 15 cc of Omniscan FINDINGS: HEMORRHAGE: None DWI: No evidence of an acute or early subacute infarction. BRAIN PARENCHYMA: No mass,mass effect or edema. Severe chronic white matter disease is seen in the periventricular white matter extending into the deep and subcortical white matter. The findings are most likely due to microvascular ischemic changes in this age group. However this could represent chronic demyelinating disease. Clinical correlation is suggested. There is thinning of the corpus callosum. No change from prior study ENHANCEMENT: No abnormal intracranial enhancement. VENTRICLES: Mild atrophy CRANIUM: Unremarkable. ORBITS: Grossly unremarkable. PARANASAL SINUSES/MASTOIDS: Clear VASCULAR SYSTEM: Skull base flow voids intact. OTHER FINDINGS: None . IMPRESSION: Severe chronic white matter disease is seen in the periventricular white matter extending into the deep and subcortical white matter. The findings are most likely due to microvascular ischemic changes in this age group. However this could represent chronic demyelinating disease. Clinical correlation is suggested. No evidence of acute infarct
[2017-11-22 14:38] LABS: FOLATE 10.6 ng/mL
--- NOTE | 2017-11-22 18:44 | HP ---
CHIEF COMPLAINT: Falls at home, change in mental status, worsening dementia, high WBC and ESR. HISTORY OF PRESENT ILLNESS: This is a 72-year-old woman I have known for many years with worsening dementia of the Alzheimer's type. Family was in the process of looking to long-term placement at [facility]. The patient was seen in the office on Monday, some 3 days before this admission. Labs were drawn and surprisingly her white count came back as 19,000 and her sed rate was 112. The patient had no obvious sources of infection, no cough, no phlegm, no abdominal pain, no diarrhea, no dysuria. No skin infection, no wounds, no abscess, no joint pain or bone pain other than minor arthralgias. Over the weekend, she developed worsening state of alertness, some minor changes in mental status and fell 3 times at home. called on Monday morning and the patient was directed to the emergency room for further workup and evaluation. PAST MEDICAL HISTORY: Significant for worsening dementia over the past several years as well as hypertension. CURRENT MEDICATIONS: Include metoprolol, Aricept, and Namenda. SOCIAL HISTORY: She does not smoke, although there is a history of tobacco use in the past. She does not drink alcohol. She is , with grown children, a devoted son who cares for her and comes with her to the office with her . REVIEW OF SYSTEMS: Otherwise unremarkable, but difficult to obtain in view of the dementia as patient tends to deny many symptoms. PHYSICAL EXAMINATION: GENERAL: The patient is seen in the hospital room 362, bed 1. Exam is essentially unchanged from the office on Monday and quite unremarkable. She is awake and alert. There is moderate degree of dementia and confusion, although she is very pleasant and answers simple questions, using humor to avoid unknown answers. HEAD AND NECK: Unremarkable. Some temporalis wasting. Conjunctivae are pink. Mucous membranes moist. NECK: Supple with no masses. There is no lymphadenopathy. Thyroid is not palpable. LUNGS: Clear. HEART: Regular, non-tachycardic. ABDOMEN: Soft, nontender. EXTREMITIES: Show no edema. SKIN: Shows no breakdown or wounds. BACK: There is no CVA tenderness. IMPRESSION: 1. Worsening dementia, altered mental status over the weekend. Must rule out infectious etiology for this change. 2. Elevated white count and sedimentation rate noted on outpatient labs and again confirmed in the ER. This is a new finding as the labs just a few months ago were completely within normal limits. The patient denies headaches and visual symptoms. 3. Rule out infectious etiology to above symptoms. 4. Rule out vasculitis or inflammatory changes. 5. Rule out autoimmune etiology to these symptoms. PLAN: Admit to med-surg floor. Blood cultures, urine cultures, Infectious Disease consultation. Would also consider Rheumatology or Hematology consultation in future if needed. Bairon Correa MD [facility]
--- NOTE | 2017-11-23 00:04 | PN ---
DATE: SUBJECTIVE: The patient is a 72-year-old female with a history of senile dementia and hypertension, who was admitted with leukocytosis when it was surprisingly found that her white blood cell count was elevated at 19,000. She was admitted to [facility] 2 days ago. MRI of the brain showed small vein, small vessel disease versus chronic demyelinating disease. Chest x-ray showed no acute disease. EKG showed sinus rhythm with short IL interval and premature atrial contractions with aberrant conduction. The patient has been evaluated by Dr. Acuña, the neurologist as well as Dr. Ronquillo, the tape coater and Dr. Henry, the Infectious Disease specialist. When seen today, the patient is awake, alert. She is a bit confused. She voices no complaints. There is no coughing. No fever. No shortness of breath. Her abdomen is soft and nontender. LABORATORY DATA: This morning laboratory showed that the white blood cell count actually went up to 23.2. There was a shift of high granulocytes. Hemoglobin and hematocrit are 11.7 and 35.[address] Leukocytes by the way were actually low. Sodium is slightly depressed at 129, potassium is 3.7. Blood urea nitrogen is 9 and creatinine is 0.5. Procalcitonin was mildly elevated at 0.74. Blood cultures have been negative so far. ASSESSMENT AND PLAN: So, we are following the patient off antibiotics. We are waiting the CAT scan of the abdomen and pelvis for tomorrow. We will be rechecking the morning's laboratories, following electrolytes as well as the white cell count, and we will be continuing to follow the patient closely. Chapito Correa MD
[2017-11-23 07:09] LABS: ALB/GLOB RATIO 0.8 (1.1-1.8); ALT/SGPT 44 U/L (7-56); AST/SGOT 89 U/L (14-36); BLOOD UREA NITROGEN 8 mg/dL (7-21); GFR AFRICAN-AMERICAN > 60; GFR NON-AFRICAN AMERICAN > 60
[2017-11-23 07:11] LABS: BASO # 0.01 K/mm3 (0.0-2.0); EOS # 0.3 (0.0-0.7); EOS % 1.1 % (1.5-5.0); GRAN # 18.76 (1.4-6.5); GRAN % 79.9 % (50.0-68.0); HEMOGLOBIN 11.2 g/dL (12.0-16.0); LYMPH # 2.5 (1.2-3.4); LYMPH % 10.7 % (22.0-35.0); MEAN CELL VOLUME 91.4 fl (80.0-105.0); MEAN CORPUSCULAR HEMOGLOBIN 30.1 pg (25.0-35.0); MEAN CORPUSCULAR HGB CONC 32.9 g/dl (31.0-37.0); MEAN PLATELET VOLUME 9.6 fl (7.0-11.0); MONO % 8.3 % (1.0-6.0); RBC 3.72 10^6/uL (3.5-6.1); RED CELL DISTRIBUTION WIDTH 13.5 % (11.5-14.5); WHITE BLOOD COUNT 23.5 10^3/ul (4.5-11.0)
--- NOTE | 2017-11-23 08:42 | CT ---
PROCEDURE: CT Abdomen and Pelvis without intravenous contrast HISTORY: Rule out infection COMPARISON: None. TECHNIQUE: Without contrast.. Contrast Dose: Radiation dose: Total exam DLP = 190 mGy-cm. This CT exam was performed using one or more of the following dose reduction techniques: Automated exposure control, adjustment of the mA and/or kV according to patient size, and/or use of iterative reconstruction technique. FINDINGS: LOWER THORAX: Unremarkable. LIVER: Multiple hypodense lesions are seen throughout the liver consistent with metastatic disease. There is also hepatomegaly. There were no prior studies for comparison. GALLBLADDER AND BILE DUCTS: Unremarkable. PANCREAS: Unremarkable. No gross lesion or ductal dilatation. SPLEEN: Unremarkable. ADRENALS: Unremarkable. No mass. KIDNEYS AND URETERS: Unremarkable. No hydronephrosis. No solid mass. VASCULATURE: Unremarkable. No aortic aneurysm. BOWEL: Unremarkable. No obstruction. No gross mural thickening. APPENDIX: Unremarkable. Normal appendix. PERITONEUM: Minimal fluid in the pelvis LYMPH NODES: Unremarkable. No enlarged lymph nodes. BLADDER: Unremarkable. REPRODUCTIVE: Unremarkable. BONES: There is scoliosis with degenerative changes in the lumbar spine. Degenerative changes are seen in the left hip OTHER FINDINGS: None. IMPRESSION: Hepatomegaly with multiple hypodense lesions throughout the liver consistent with metastatic disease.
--- NOTE | 2017-11-23 10:22 | CP.PCM.PN ---
<Giselle Friend - Last Filed: 11/23/17 10:24> Subjective - Date & Time of Evaluation Date of Evaluation: 11/23/17 Time of Evaluation: 09:00 - Subjective Subjective: Neurology PGY-2 Pt knows she is at a [facility] hospital today. No acute complaint Objective - Vital Signs/Intake and Output Vital Signs (last 24 hours): Temp Pulse Resp BP Pulse Ox 97.9 F 94 H 20 124/69 99 11/23/17 08:46 11/23/17 08:46 11/23/17 08:46 11/23/17 08:46 11/23/17 08:46 Intake and Output: 11/23/17 11/23/17 06:59 18:59 Intake Total 100 Balance 100 - Medications Medications: Current Medications Acetaminophen (Tylenol 325mg Tab) 650 mg PO Q6H PRN PRN Reason: Fever >100.4 F Aspirin (Ecotrin) 81 mg PO DAILY [facility] Last Admin: 11/23/17 09:34 Dose: 81 mg Donepezil HCl (Aricept) 10 mg PO DAILY [facility] Last Admin: 11/23/17 09:34 Dose: 10 mg Memantine (Namenda) 10 mg PO BID [facility] Last Admin: 11/23/17 09:34 Dose: 10 mg Metoprolol Tartrate (Lopressor) 50 mg PO BRKDIN [facility] Last Admin: 11/23/17 09:33 Dose: 50 mg - Labs Labs: 11/23/17 05:30 11/23/17 05:30 - Constitutional Appears: No Acute Distress - Head Exam Head Exam: ATRAUMATIC, NORMAL INSPECTION, NORMOCEPHALIC - Eye Exam Eye Exam: EOMI, Normal appearance, PERRL Pupil Exam: NORMAL ACCOMODATION - ENT Exam ENT Exam: Mucous Membranes Moist - Neck Exam Additional comments: supple - Respiratory Exam Respiratory Exam: Clear to Ausculation Bilateral, NORMAL BREATHING PATTERN - Cardiovascular Exam Cardiovascular Exam: REGULAR RHYTHM, +S1, +S2. absent: Murmur - Neurological Exam Additional comments: AAO x [address] Speech: no aphasia recall: 0/3 motor: move all extremities 4+/5 sensory: intact though: follow one-step instructions only. Left handed. - Psychiatric Exam Psychiatric exam: Normal Affect, Normal Mood - Skin Skin Exam: Dry, Warm Assessment and Plan - Assessment and Plan (Free Text) Plan: Ms Pat Rob, 72 F, with PMHx of dementia (Dx 2 years ago), Hx (+) ANIBAL, c/ o increasing generalized weakness, fatique, and difficulty ambulation. Denies personality changes or hallucination. Her leukocytosis is at 19.4 with granulocytosis, ESR 89. Hyponatremia today. TSH & B12 normal. RPR negative Alzheima dementia with Severe chronic microvascular dementia - MRI brain w/wo contrast: Severe chronic white matter disease in periventricular white matter extending to deep and subcortical white matter, likely microvascular ischemic changes - Monitor electrolytes closely and correct accordingly - Currently observe off antibiotics. Pending culture result - continue donepezil 10 daily and Namenda 10 BID - Physical therapy, occupational therapy - Recommended subacute rehab and long-term placement - Pt's prefer [place] - ASA and lipitor 20 for stroke prevention - maintain SBP 120-130 Leukocytosis in 20s mostly PMNs, no increased lymph, likely reactive leukocytosis Fe Deficiency anemia - Heme/Onc team on board - Negative RF - __Pending__ANA, immunofixation, lupus panel - __Pending__flow cytometry, BCR mutation to rule out chrinic myelogenous leukemia s/r/d/w Dr. Acuña <Pepe Acuña - Last Filed: 11/23/17 10:30> Objective - Vital Signs/Intake and Output Vital Signs (last 24 hours): Temp Pulse Resp BP Pulse Ox 97.9 F 94 H 20 124/69 99 11/23/17 08:46 11/23/17 08:46 11/23/17 08:46 11/23/17 08:46 11/23/17 08:46 Intake and Output: 11/23/17 11/23/17 06:59 18:59 Intake Total 100 Balance 100 - Medications Medications: Current Medications Acetaminophen (Tylenol 325mg Tab) 650 mg PO Q6H PRN PRN Reason: Fever >100.4 F Aspirin (Ecotrin) 81 mg PO DAILY [facility] Last Admin: 11/23/17 09:34 Dose: 81 mg Atorvastatin Calcium (Lipitor) 20 mg PO DIN [facility] Donepezil HCl (Aricept) 10 mg PO DAILY [facility] Last Admin: 11/23/17 09:34 Dose: 10 mg Memantine (Namenda) 10 mg PO BID [facility] Last Admin: 11/23/17 09:34 Dose: 10 mg Metoprolol Tartrate (Lopressor) 50 mg PO BRKDIN [facility] Last Admin: 11/23/17 09:33 Dose: 50 mg - Labs Labs: 11/23/17 05:30 11/23/17 05:30 Attending/Attestation - Attestation I have personally seen and examined this patient.: Yes I have fully participated in the care of the patient.: Yes I have reviewed all pertinent clinical information, including history, physical exam and plan: Yes
--- NOTE | 2017-11-23 19:55 | CP.PCM.PN ---
Subjective - Date & Time of Evaluation Date of Evaluation: 11/23/17 Time of Evaluation: 10:20 - Subjective Subjective: Comfortable in bed, no fevers, no abdominal pain, no headache, no diarrhea. Objective - Vital Signs/Intake and Output Vital Signs (last 24 hours): Temp Pulse Resp BP Pulse Ox 97.9 F 94 H 20 124/69 99 11/23/17 08:46 11/23/17 08:46 11/23/17 08:46 11/23/17 08:46 11/23/17 08:46 Intake and Output: 11/23/17 11/23/17 06:59 18:59 Intake Total 100 Balance 100 - Medications Medications: Current Medications Acetaminophen (Tylenol 325mg Tab) 650 mg PO Q6H PRN PRN Reason: Fever >100.4 F Aspirin (Ecotrin) 81 mg PO DAILY [facility] Last Admin: 11/22/17 10:08 Dose: 81 mg Donepezil HCl (Aricept) 10 mg PO DAILY [facility] Last Admin: 11/22/17 10:08 Dose: 10 mg Memantine (Namenda) 10 mg PO BID [facility] Last Admin: 11/22/17 17:20 Dose: 10 mg Metoprolol Tartrate (Lopressor) 50 mg PO BRKDIN [facility] Last Admin: 11/22/17 17:20 Dose: 50 mg - Labs Labs: 11/23/17 05:30 11/23/17 05:30 - Constitutional Appears: Non-toxic, Chronically Ill - Head Exam Head Exam: NORMAL INSPECTION - ENT Exam ENT Exam: Mucous Membranes Moist - Neck Exam Neck Exam: absent: Meningismus - Respiratory Exam Respiratory Exam: Decreased Breath Sounds - Cardiovascular Exam Cardiovascular Exam: +S1, +S2 - GI/Abdominal Exam GI & Abdominal Exam: Soft. absent: Tenderness Assessment and Plan - Assessment and Plan (Free Text) Plan: Assessment Leukocytosis, probably from malignancy (CT A/P showing multiple liver lesions, probably metastatic lesions) probable Alzheimer's dementia S/P right meniscus surgery frequent falls Plan cultures are negative, will continue to monitor off antibiotics follow up further plans of the liver / metastatic lesions overall prognosis is poor
[2017-11-24 05:29] LABS: MEAN CELL VOLUME 90.9 fl (80.0-105.0); MEAN CORPUSCULAR HEMOGLOBIN 30.4 pg (25.0-35.0); MEAN CORPUSCULAR HGB CONC 33.4 g/dl (31.0-37.0); MEAN PLATELET VOLUME 8.9 fl (7.0-11.0); RBC 3.62 10^6/uL (3.5-6.1); RED CELL DISTRIBUTION WIDTH 13.5 % (11.5-14.5); WHITE BLOOD COUNT 20.6 10^3/ul (4.5-11.0)
[2017-11-24 05:41] LABS: INR 1.28 (0.93-1.08); PARTIAL THROMBOPLASTIN TIME 28.1 Seconds (25.1-36.5); PROTHROMBIN TIME 14.8 SECONDS (9.4-12.5)
[2017-11-24 07:13] LABS: ALB/GLOB RATIO 0.8 (1.1-1.8); ALBUMIN 2.9 g/dL (3.0-4.8); ALT/SGPT 33 U/L (7-56); AST/SGOT 62 U/L (14-36); BLOOD UREA NITROGEN 8 mg/dL (7-21); CALCIUM 8.9 mg/dL (8.4-10.5); GFR AFRICAN-AMERICAN > 60; GFR NON-AFRICAN AMERICAN > 60
--- NOTE | 2017-11-24 12:06 | CP.PCM.PN ---
Subjective - Date & Time of Evaluation Date of Evaluation: 11/24/17 Time of Evaluation: 10:10 - Subjective Subjective: Comfortable, no fevers, not in distress. Objective - Vital Signs/Intake and Output Vital Signs (last 24 hours): Temp Pulse Resp BP Pulse Ox 97.9 F 87 20 161/85 H 97 11/24/17 06:00 11/24/17 06:00 11/24/17 06:00 11/24/17 06:00 11/24/17 06:00 Intake and Output: 11/24/17 11/24/17 06:59 18:59 Intake Total 540 Balance 540 - Medications Medications: Current Medications Acetaminophen (Tylenol 325mg Tab) 650 mg PO Q6H PRN PRN Reason: Fever >100.4 F Aspirin (Ecotrin) 81 mg PO DAILY [facility] Last Admin: 11/23/17 09:34 Dose: 81 mg Atorvastatin Calcium (Lipitor) 20 mg PO DIN [facility] Last Admin: 11/23/17 17:09 Dose: 20 mg Donepezil HCl (Aricept) 10 mg PO DAILY [facility] Last Admin: 11/23/17 09:34 Dose: 10 mg Memantine (Namenda) 10 mg PO BID [facility] Last Admin: 11/23/17 17:09 Dose: 10 mg Metoprolol Tartrate (Lopressor) 50 mg PO BRKDIN [facility] Last Admin: 11/23/17 17:09 Dose: 50 mg - Labs Labs: 11/24/17 05:18 11/24/17 05:18 PT 14.8 SECONDS (9.4-12.5) H 11/24/17 05:18 INR 1.28 (0.93-1.08) H 11/24/17 05:18 APTT 28.1 Seconds (25.1-36.5) 11/24/17 05:18 - Constitutional Appears: Cachectic, Chronically Ill - Head Exam Head Exam: NORMAL INSPECTION - Neck Exam Neck Exam: absent: Meningismus - Respiratory Exam Respiratory Exam: Decreased Breath Sounds - Cardiovascular Exam Cardiovascular Exam: +S1, +S2 - GI/Abdominal Exam GI & Abdominal Exam: Soft. absent: Tenderness Assessment and Plan - Assessment and Plan (Free Text) Plan: Assessment Leukocytosis, probably from malignancy (CT A/P showing multiple liver lesions, probably metastatic lesions) probable Alzheimer's dementia S/P right meniscus surgery frequent falls Plan cultures are negative, will continue to monitor off antibiotics since she is at risk for nosocomial infections follow up further plans of the liver / metastatic lesions - for biopsy discussed with Dr. Correa overall prognosis is poor
[2017-11-24] MEDS ORDERED: Sodium Chloride 0.45% 1,000 ML IV SCH (12:15)
[2017-11-24] MEDS ORDERED: Midazolam 2 MG/2 ML VIAL ONE (12:36)
[2017-11-24] MEDS ORDERED: Lidocaine 1% Inj (20ml) ONE (15:50)
--- NOTE | 2017-11-24 18:48 | CT ---
PROCEDURE: CT guided liver biopsy. HISTORY: Multiple liver lesions consistent with metastatic disease. Evaluate for malignancy PHYSICIAN(S): Javier Storey MD. TECHNIQUE: The relative risks and indications of the procedure were explained to the patient's family and consent obtained. The patient was placed supine on the CT scanner and preliminary images through the liver obtained. Conscious sedation and monitoring were provided throughout the procedure by a nurse. There are numerous low-attenuation masses in both lobes liver. A 3.5 cm mass in the anterior segment right lobe was selected for biopsy. A right lateral approach was selected and the area prepped and draped in the usual sterile fashion. 1% Xylocaine was used to anesthetize the skin and soft tissues. A 17-gauge guiding needle was advanced into the 3.5 cm low-attenuation mass anterior segment right lobe of the liver. Its position was confirmed with CT. Using coaxial technique, multiple core biopsies were obtained. The postprocedure images show no evidence of significant hemorrhage. IMPRESSION: 1. CT-guided liver biopsy as described above.
--- NOTE | 2017-11-24 20:13 | CON ---
ONCOLOGY CONSULTATION DATE: HISTORY OF PRESENT ILLNESS: This is a 72-year-old woman with dementia, leukocytosis, and her CAT scan, which shows multiple liver metastases by x-ray. She is not able to give a good history at all. PHYSICAL EXAMINATION SKIN: No petechiae, no bruises, no lumps. HEENT: Anicteric. NODES: Not palpable in the axillary, cervical, supraclavicular, or inguinal regions. LUNGS: Clear, though she is not very cooperative, but she able to lie flat in bed. HEART: S1, S2. BREASTS: Shows no obvious mass. ABDOMEN: She does not take a deep breath, but I do not feel liver or spleen. No masses, no omental lesions. EXTREMITIES: No edema. CENTRAL NERVOUS SYSTEM: She is not cooperative. DIAGNOSTIC DATA: The CAT scan shows hepatomegaly with multiple hypodense lesions throughout the liver consistent with metastatic cancer. At this point, decision has to be made whether she should go for liver biopsy. I would do that quicker than I would do colonoscopies and upper endoscopies. Evidently, and that if it is possible take it from there and speak to the family as to most likely this is a metastatic cancer henceforth that is by definition incurable. So at this point, the next step if it is wished by the family to pursue this to do liver biopsy. Guille Ronquillo MD
[2017-11-25 07:01] LABS: HEMOGLOBIN 10.5 g/dL (12.0-16.0); MEAN CELL VOLUME 92.5 fl (80.0-105.0); MEAN CORPUSCULAR HEMOGLOBIN 30.3 pg (25.0-35.0); MEAN CORPUSCULAR HGB CONC 32.8 g/dl (31.0-37.0); MEAN PLATELET VOLUME 9.5 fl (7.0-11.0); RBC 3.46 10^6/uL (3.5-6.1); RED CELL DISTRIBUTION WIDTH 13.9 % (11.5-14.5); WHITE BLOOD COUNT 19.3 10^3/ul (4.5-11.0)
--- NOTE | 2017-11-25 21:01 | PN ---
DATE: 11/23/2017 SUBJECTIVE: Patient is seen this in room 362, bed 1. Sitting in bed, comfortable, awake, alert, in no acute distress. There is no fevers. She does not appears septic or toxic. Infectious Disease and Hematology notes appreciated. Flow cytometry was ordered and leukocytosis looks to be reactive in nature. Later in the day, CT scan was ordered, which raised a question of metastatic disease throughout the liver. There is no thickening in the stomach wall, thickening of the colon wall. There is no other mass or lymphadenopathy noted. I spoke with patient's and patient's son, this afternoon, explained the findings while the workup can go in the direction of colonoscopy and endoscopy at this point in time with patient's underlying dementia and related to transfer to subacute rehab and then long-term care, it may be best for us and for the patient to get a biopsy tissue diagnosis through liver biopsy. Therefore consultation will be called to Dr. Javier Storey for biopsy on Monday. Patient's and son were informed. All explained to the patient on Monday. Bairon Correa MD
--- NOTE | 2017-11-25 21:27 | PN ---
DATE: 11/24/2017 DAILY PROGRESS NOTE SUBJECTIVE: The patient was seen early this Monday morning in room 320, bed 1. She is happy to see me, recognizes me easily. She is awake, alert, clear, appropriate, although a bit confused from some moderate degree of underlying dementia. I explained to her at length that she is scheduled for liver biopsy later today. She seems to understand and accept the information well, although was not able to repeat back accurately just a few minutes afterwards. I spoke with her and son yesterday. She is comfortable and in good spirits, may be ready for transfer to [facility] subacute rehab as early as tomorrow or perhaps even later today, if cleared by Surgery after her biopsy. Case was discussed with nurse practitioner and of course the patient's nurse at the bedside. We will follow closely and I spoke with Dr. Javier Storey's office. So biopsy is scheduled. At the end of the day, I spoke with Dr. Javier Storey, biopsy was done, a good tissue specimen was obtained. Pathology will take several days, but the patient may be ready for transfer to [facility] late this evening after a period of observation on the floor. If not late tonight, she would be ready to go tomorrow, Monday. The patient's was informed. Bairon Correa MD
--- NOTE | 2017-11-25 21:53 | PN ---
DATE: 11/25/2017 SUBJECTIVE: The patient was seen this Monday, in room 360, bed 1. She is awake, alert, clear, and in good spirits. Looks slightly confused from her underlying dementia, unable to repeat back stories or the facts that I explained to her, but very pleasant nonetheless. Biopsy of the liver lesions that looked to be metastatic on CAT scan was performed yesterday. Patient was cleared for discharge in the late evening. Apparently, her arrangements had already been made for Monday and it was too late to transfer; however, now I hear the bed is not available and she will be going to the [facility] for subacute rehabilitation; therefore likely transition to long-term care leaving [facility] tomorrow, Monday, . PHYSICAL EXAMINATION: GENERAL: Patient is quite pleasant as noted above. LUNGS: Have good aeration in right and left. ABDOMEN: Soft and nontender. Sterile bandage is in place on the right upper abdomen from the recent liver biopsy. Bowel sounds are present. NEUROLOGICAL: She is awake, alert and moving all extremities. PLAN: Await pathology repots. The patient may be ready for discharge to [facility] when a bed available. Bairon Correa MD MTDD
--- NOTE | 2017-11-26 00:33 | PN ---
DATE: 11/25/2017 SUBJECTIVE: Patient is in bed, in no acute distress, nontoxic. PHYSICAL EXAMINATION: VITAL SIGNS: Temperature is 98, blood pressure is 140/60, respiratory rate of 18, heart rate of 91. HEENT: Unremarkable. NECK: Supple. LUNGS: Have decreased breath sounds. HEART: Normal S1, S2. ABDOMEN: Soft, nontender. LABORATORY EXAMINATION: Reveals a white count of 19,300, hemoglobin of 10. Chemistries reveal the patient has a BUN of 8, creatinine of 0.5. Urinalysis is noted and serology is noted. Microbiology reveals the blood cultures are negative. ASSESSMENT AND PLAN: This is a 72-year-old female who was seen earlier this morning in room 360, bed 1, with leukocytosis, probably from malignancy and multiple liver lesions, metastatic disease, and patient with Alzheimer's dementia, currently off of antibiotics, afebrile. White count down to 19,300. Overall prognosis quite poor. Luis Kuo MD
--- NOTE | 2017-11-26 18:38 | PN ---
DATE: 11/26/2017 SUBJECTIVE: The patient is in bed, in no acute distress. PHYSICAL EXAMINATION: VITAL SIGNS: Temperature is 97, blood pressure is 135/70, respiratory rate of 20. HEENT: Unremarkable. NECK: Supple. LUNGS: Decreased breath sounds. HEART: Normal S1, S2. ABDOMEN: Soft, nontender. LABORATORY EXAMINATION: Reveals a white count of 19,000, hemoglobin of 10. BUN of 8, creatinine of 0.5. ANIBAL screen is positive. Review of orders reveals the patient to be off antibiotics. ASSESSMENT/PLAN: A 72-year-old female seen early this morning in room 360, bed 1, with leukocytosis malignancy, multiple liver lesions, metastatic disease, Alzheimer's, currently off antibiotics, afebrile. Persistent leukocytosis most likely secondary to underlying liver metastases. Overall prognosis quite poor. Luis Kuo MD
--- NOTE | 2017-11-26 23:09 | PN ---
DATE: 11/26/2017 SUBJECTIVE: The patient was seen this Monday morning in room 360, bed 1. She is awake, alert, clear, in good spirit and we will schedule for discharge and transferred to [facility] at 11 a.m. this morning. I was surpised to hear that her transfer has been delayed at [facility] end because of insurance approval and that Case Management was notified and this will be worked out tomorrow. The patient will stay in 316, bed 1. In the interim, she is doing well. She is in good spirit. PHYSICAL EXAMINATION: HEAD AND NECK: Unremarkable. Conjunctivae are pink. Mucous membranes are moist. LUNGS: Clear. HEART: Regular, not tachycardic. ABDOMEN: Soft. The surgical site from the liver biopsy is covered with no drainage, no bleeding. EXTREMITIES: Showed no edema. IMPRESSION: 1. Leukocytosis believed to be related to #2. 2. Metastatic disease noted in the liver on CT scan with biopsy performed. 3. Dementia of the Alzheimer's type. Bairon Correa MD
[2017-11-27 00:02] LABS: BCR-ABL SOURCE NOT GIVEN; P190 BCR-ABL1 NOT DETECTED; P210 BCR-ABL1 NOT DETECTED
[2017-11-27 08:53] VITALS: RESP 20; TEMP 97.7
[2017-11-27 10:56] VITALS: BP 136/73; PULSE 112; O2SAT 98
--- NOTE | 2017-11-27 16:43 | CP.PCM.PN ---
Subjective - Date & Time of Evaluation Date of Evaluation: 11/27/17 Time of Evaluation: 09:45 - Subjective Subjective: Comfortable in bed, no fevers, not in distress. Objective - Vital Signs/Intake and Output Vital Signs (last 24 hours): Temp Pulse Resp BP Pulse Ox 97.7 F 99 H 20 126/66 97 11/27/17 08:52 11/27/17 08:52 11/27/17 08:52 11/27/17 08:52 11/27/17 08:52 Intake and Output: 11/27/17 11/27/17 06:59 18:59 Intake Total 240 Balance 240 - Medications Medications: Current Medications Acetaminophen (Tylenol 325mg Tab) 650 mg PO Q6H PRN PRN Reason: Fever >100.4 F Aspirin (Ecotrin) 81 mg PO DAILY [facility] Last Admin: 11/26/17 09:24 Dose: 81 mg Atorvastatin Calcium (Lipitor) 20 mg PO DIN [facility] Last Admin: 11/26/17 17:06 Dose: 20 mg Donepezil HCl (Aricept) 10 mg PO DAILY [facility] Last Admin: 11/26/17 09:24 Dose: 10 mg Memantine (Namenda) 10 mg PO BID [facility] Last Admin: 11/26/17 17:06 Dose: 10 mg Metoprolol Tartrate (Lopressor) 50 mg PO BRKDIN [facility] Last Admin: 11/26/17 17:07 Dose: Not Given Ondansetron HCl (Zofran Inj) 4 mg IVP Q6H PRN PRN Reason: Nausea/Vomiting - Labs Labs: 11/25/17 06:30 11/24/17 05:18 PT 14.8 SECONDS (9.4-12.5) H 11/24/17 05:18 INR 1.28 (0.93-1.08) H 11/24/17 05:18 APTT 28.1 Seconds (25.1-36.5) 11/24/17 05:18 - Constitutional Appears: Cachectic, Chronically Ill - Head Exam Head Exam: NORMAL INSPECTION - Respiratory Exam Respiratory Exam: Decreased Breath Sounds - Cardiovascular Exam Cardiovascular Exam: +S1, +S2 - GI/Abdominal Exam GI & Abdominal Exam: Soft. absent: Tenderness Assessment and Plan - Assessment and Plan (Free Text) Plan: Assessment Leukocytosis, probably from malignancy (CT A/P showing multiple liver lesions, probably metastatic lesions) probable Alzheimer's dementia S/P right meniscus surgery frequent falls Plan cultures are negative, will continue to monitor off antibiotics since she is at risk for hospital-acquired infections follow up biopsy results of the liver lesions overall prognosis is poor
== END 2017-11-27 19:49 | DRG 436 ==
LOC: ED 12:44 → ERH 16:00 → 3RNO 22:27
PROVIDERS: ADMIT Internal Medicine; ATTEND Internal Medicine
PROC: 0FB13ZX Excision of Right Lobe Liver, Percutaneous Approach, Diagnostic (ICD-10-PCS; principal; 2017-11-24 11:00)
DX: C78.7 Secondary malignant neoplasm of liver and intrahepatic bile duct (principal); E87.1 Hypo-osmolality and hyponatremia; G30.9 Alzheimer's disease, unspecified; F02.80 Dementia in other diseases classified elsewhere, unspecified severity, without behavioral disturbance, psychotic disturbance, mood disturbance, and anxiety; D50.9 Iron deficiency anemia, unspecified; D72.829 Elevated white blood cell count, unspecified; I10 Essential (primary) hypertension; M17.0 Bilateral primary osteoarthritis of knee; R29.6 Repeated falls; Z79.82 Long term (current) use of aspirin; Z75.1 Person awaiting admission to adequate facility elsewhere; Z87.891 Personal history of nicotine dependence